=== PATIENT | female | born 1970 ===

== ENCOUNTER 2020-04-01 14:00 | Outpatient (CLI) | payer SELFPAY ==
--- NOTE | 2020-04-01 14:13 | XRR_ITS ---
PROCEDURE INFORMATION: Exam: XR Abdomen, 1 View Exam date and time: 04/01/2020 2:24 PM Age: 49 years old Clinical indication: Condition or disease; Kidney or ureter condition; Calculus (stone) in ureter; Additional info: Ureteral stone-calculus of ureter TECHNIQUE: Imaging protocol: XR of the abdomen. Views: Frontal supine view of the abdomen. 1 View. COMPARISON: No relevant prior studies available. FINDINGS: Gastrointestinal tract: Moderate colonic fecal stasis is seen in the ascending and transverse colon. Organs: Caliceal stone lower pole collecting system of the right kidney. Bones/joints: Unremarkable. Other findings: This finding measures 6.8 mm. XR/XR KUB [id number] IMPRESSION: 1. No acute findings. 2. caliceal stone right kidney
== END 2020-04-01 14:01 | disposition home or self-care (01) ==
PROVIDERS: Visit Provider Nurse Practitioner Family
DX: N20.1 Calculus of ureter (principal); N20.0 Calculus of kidney
CPT/HCPCS: 74018; 81003

== ENCOUNTER → 2022-09-15 11:51 | Outpatient (BNVA) | payer SELFPAY | PROVIDERS: PCP Registered Nurse; Visit Provider Registered Nurse | DX: N20.0 Calculus of kidney (principal) | CPT/HCPCS: 81000 ==

== ENCOUNTER → 2023-08-19 11:34 | Outpatient (BNVA) | payer SELFPAY | PROVIDERS: PCP Registered Nurse; Visit Provider Registered Nurse | DX: N20.0 Calculus of kidney (principal) | CPT/HCPCS: 80053; 82310; 83036; 83970; 84443; 85025 ==

== ENCOUNTER → 2024-06-28 10:37 | Outpatient (BNVA) | payer MEDICAID, SELFPAY | PROVIDERS: PCP Registered Nurse; Visit Provider Student in an Organized Health Care Education/Training Program | DX: M17.12 Unilateral primary osteoarthritis, left knee (principal); M23.52 Chronic instability of knee, left knee; M25.562 Pain in left knee; M25.569 Pain in unspecified knee | CPT/HCPCS: 73560; 73565 ==

== ENCOUNTER 2024-06-30 10:38 | Outpatient (CLI) | payer MEDICAID, SELFPAY | END 2024-06-30 10:39 | disposition home or self-care (01) | LOC: SPT 10:39 | PROVIDERS: PCP Registered Nurse; Visit Provider Student in an Organized Health Care Education/Training Program | DX: Z46.89 Encounter for fitting and adjustment of other specified devices (principal); M17.12 Unilateral primary osteoarthritis, left knee | CPT/HCPCS: 97760 ==